=== PATIENT | male | born 1935 | race Native Hawaiian/Other Pacific Islander ===

== ENCOUNTER 2016-04-16 06:05 | Outpatient (CLI) | payer OTHER | END 2016-04-16 19:17 | disposition home or self-care (01) | LOC: LAB 06:05 | DX: Z79.899 Other long term (current) drug therapy (principal); Z51.81 Encounter for therapeutic drug level monitoring | CPT/HCPCS: 36415; 85610 ==

== ENCOUNTER 2016-05-16 06:06 | Outpatient (CLI) | payer OTHER | END 2016-05-16 20:01 | disposition home or self-care (01) | LOC: LAB 06:06 | DX: Z79.01 Long term (current) use of anticoagulants (principal); Z51.81 Encounter for therapeutic drug level monitoring | CPT/HCPCS: 36415; 85610 ==

== ENCOUNTER 2016-06-13 06:12 | Outpatient (CLI) | payer OTHER | END 2016-06-13 22:48 | disposition home or self-care (01) | LOC: LABW 06:12 | DX: Z79.01 Long term (current) use of anticoagulants (principal); Z51.81 Encounter for therapeutic drug level monitoring | CPT/HCPCS: 36415; 85610 ==

== ENCOUNTER → 2016-07-07 10:48 | Outpatient (CLI) | payer OTHER | END | disposition home or self-care (01) | LOC: AMB 10:48 | DX: S61.411A Laceration without foreign body of right hand, initial encounter (principal) ==

== ENCOUNTER 2016-07-16 06:27 | Outpatient (CLI) | payer OTHER | END 2016-07-16 07:27 | disposition home or self-care (01) | LOC: LABW 06:27 | DX: Z79.899 Other long term (current) drug therapy (principal); Z51.81 Encounter for therapeutic drug level monitoring | CPT/HCPCS: 36415; 85610 ==

== ENCOUNTER 2016-08-13 06:08 | Outpatient (CLI) | payer OTHER | END 2016-08-13 19:39 | disposition home or self-care (01) | LOC: LABW 06:08 | DX: Z79.899 Other long term (current) drug therapy (principal); Z79.01 Long term (current) use of anticoagulants | CPT/HCPCS: 36415; 85610 ==

== ENCOUNTER 2016-09-13 06:05 | Outpatient (CLI) | payer OTHER ==
[2016-09-13 06:41] LABS: PLATELET COUNT 220 K/uL (142-355)
[2016-09-13 07:28] LABS: POTASSIUM 3.8 mmol/L (3.6-5.2)
== END 2016-09-13 19:13 | disposition home or self-care (01) ==
LOC: LABW 06:05
PROVIDERS: Internal Medicine Cardiovascular Disease
DX: E78.4 Other hyperlipidemia (principal); Z79.899 Other long term (current) drug therapy; Z79.01 Long term (current) use of anticoagulants; Z51.81 Encounter for therapeutic drug level monitoring
CPT/HCPCS: 36415; 80048; 80061; 85027; 85610

== ENCOUNTER 2016-10-13 06:05 | Outpatient (CLI) | payer OTHER | END 2016-10-13 07:10 | disposition home or self-care (01) | LOC: LABW 06:05 | DX: Z79.899 Other long term (current) drug therapy (principal); Z79.01 Long term (current) use of anticoagulants; Z51.81 Encounter for therapeutic drug level monitoring; E78.4 Other hyperlipidemia | CPT/HCPCS: 36415; 85610 ==

== ENCOUNTER 2016-11-13 06:06 | Outpatient (CLI) | payer OTHER | END 2016-11-13 19:04 | disposition home or self-care (01) | LOC: LABW 06:06 | DX: Z79.899 Other long term (current) drug therapy (principal); Z51.81 Encounter for therapeutic drug level monitoring; Z79.01 Long term (current) use of anticoagulants | CPT/HCPCS: 36415; 85610 ==

== ENCOUNTER 2016-12-14 05:58 | Outpatient (CLI) | payer OTHER | END 2016-12-14 07:00 | disposition home or self-care (01) | LOC: LABW 05:58 | DX: Z79.899 Other long term (current) drug therapy (principal); Z51.81 Encounter for therapeutic drug level monitoring | CPT/HCPCS: 36415; 85610 ==

== ENCOUNTER 2017-01-14 05:58 | Outpatient (CLI) | payer OTHER | END 2017-01-14 07:00 | disposition home or self-care (01) | LOC: LABW 05:58 | DX: Z79.899 Other long term (current) drug therapy (principal); Z51.81 Encounter for therapeutic drug level monitoring; Z79.01 Long term (current) use of anticoagulants | CPT/HCPCS: 85610 ==

== ENCOUNTER 2017-02-13 06:05 | Outpatient (CLI) | payer OTHER | END 2017-02-13 19:09 | disposition home or self-care (01) | LOC: LABW 06:05 | DX: Z79.899 Other long term (current) drug therapy (principal); Z79.01 Long term (current) use of anticoagulants; Z51.81 Encounter for therapeutic drug level monitoring | CPT/HCPCS: 36415; 85610 ==

== ENCOUNTER 2017-03-15 06:05 | Outpatient (CLI) | payer OTHER ==
[2017-03-15 06:52] LABS: PLATELET COUNT 216 K/uL (142-355)
[2017-03-15 07:18] LABS: POTASSIUM 3.5 mmol/L (3.6-5.2); SODIUM 137 mmol/L (136-145)
== END 2017-03-15 07:05 | disposition home or self-care (01) ==
LOC: LABW 06:05
PROVIDERS: Internal Medicine Cardiovascular Disease
DX: I25.10 Atherosclerotic heart disease of native coronary artery without angina pectoris (principal); E78.4 Other hyperlipidemia; I10 Essential (primary) hypertension; I42.8 Other cardiomyopathies; Z79.01 Long term (current) use of anticoagulants; Z51.81 Encounter for therapeutic drug level monitoring
CPT/HCPCS: 36415; 80053; 85027; 85610

== ENCOUNTER 2017-04-15 06:21 | Outpatient (CLI) | payer OTHER | END 2017-04-15 20:16 | disposition home or self-care (01) | LOC: LABW 06:21 | DX: Z79.899 Other long term (current) drug therapy (principal); Z79.01 Long term (current) use of anticoagulants; Z51.81 Encounter for therapeutic drug level monitoring | CPT/HCPCS: 36415; 85610 ==

== ENCOUNTER 2017-05-16 06:07 | Outpatient (CLI) | payer OTHER | END 2017-05-16 06:14 | disposition home or self-care (01) | LOC: LABW 06:07 | DX: Z79.899 Other long term (current) drug therapy (principal); Z51.81 Encounter for therapeutic drug level monitoring; Z79.01 Long term (current) use of anticoagulants | CPT/HCPCS: 36415; 85610 ==

== ENCOUNTER 2017-06-13 06:01 | Outpatient (CLI) | payer OTHER | END 2017-06-13 22:19 | disposition home or self-care (01) | LOC: LABW 06:01 | DX: Z79.01 Long term (current) use of anticoagulants (principal) | CPT/HCPCS: 36415; 85610 ==

== ENCOUNTER 2017-07-15 06:06 | Outpatient (CLI) | payer OTHER | END 2017-07-15 23:29 | disposition home or self-care (01) | LOC: LABW 06:06 | DX: Z79.899 Other long term (current) drug therapy (principal); Z79.01 Long term (current) use of anticoagulants; Z51.81 Encounter for therapeutic drug level monitoring | CPT/HCPCS: 36415; 85610 ==

== ENCOUNTER 2017-08-17 06:07 | Outpatient (CLI) | payer OTHER | END 2017-08-17 19:16 | disposition home or self-care (01) | LOC: LABW 06:07 | DX: Z79.899 Other long term (current) drug therapy (principal); Z79.01 Long term (current) use of anticoagulants; Z51.81 Encounter for therapeutic drug level monitoring | CPT/HCPCS: 36415; 85610 ==

== ENCOUNTER 2017-09-13 07:07 | Outpatient (CLI) | payer OTHER | END 2017-09-13 19:19 | disposition home or self-care (01) | LOC: LABW 07:07 | DX: Z79.899 Other long term (current) drug therapy (principal); Z79.01 Long term (current) use of anticoagulants; Z51.81 Encounter for therapeutic drug level monitoring | CPT/HCPCS: 36415; 85610 ==

== ENCOUNTER 2017-10-14 06:06 | Outpatient (CLI) | payer OTHER | END 2017-10-14 19:40 | disposition home or self-care (01) | LOC: LABW 06:06 | DX: Z79.899 Other long term (current) drug therapy (principal); Z79.01 Long term (current) use of anticoagulants; Z51.81 Encounter for therapeutic drug level monitoring | CPT/HCPCS: 36415; 85610 ==

== ENCOUNTER 2017-11-13 06:12 | Outpatient (CLI) | payer OTHER | END 2017-11-13 22:09 | disposition home or self-care (01) | LOC: LABW 06:12 | DX: Z79.899 Other long term (current) drug therapy (principal); Z51.81 Encounter for therapeutic drug level monitoring | CPT/HCPCS: 36415; 85610 ==

== ENCOUNTER 2017-12-14 06:21 | Outpatient (CLI) | payer OTHER | END 2017-12-14 19:23 | disposition home or self-care (01) | LOC: LABW 06:21 | DX: Z79.01 Long term (current) use of anticoagulants (principal); Z79.899 Other long term (current) drug therapy | CPT/HCPCS: 36415; 85610 ==

== ENCOUNTER 2018-01-13 06:07 | Outpatient (CLI) | payer OTHER | END 2018-01-13 19:50 | disposition home or self-care (01) | LOC: LABW 06:07 | DX: Z79.899 Other long term (current) drug therapy (principal); Z79.01 Long term (current) use of anticoagulants | CPT/HCPCS: 36415; 85610 ==

== ENCOUNTER 2018-02-13 06:08 | Outpatient (CLI) | payer OTHER | END 2018-02-13 21:49 | disposition home or self-care (01) | LOC: LABW 06:08 | DX: Z79.01 Long term (current) use of anticoagulants (principal); Z79.899 Other long term (current) drug therapy | CPT/HCPCS: 36415; 85610 ==

== ENCOUNTER 2018-03-15 06:00 | Outpatient (CLI) | payer OTHER | END 2018-03-15 18:37 | disposition home or self-care (01) | LOC: LABW 06:00 | DX: Z79.01 Long term (current) use of anticoagulants (principal); Z79.899 Other long term (current) drug therapy | CPT/HCPCS: 36415; 85610 ==

== ENCOUNTER 2018-04-15 05:46 | Outpatient (CLI) | payer OTHER | END 2018-04-15 20:41 | disposition home or self-care (01) | LOC: LABW 05:46 | DX: Z79.01 Long term (current) use of anticoagulants (principal); Z79.899 Other long term (current) drug therapy | CPT/HCPCS: 36415; 85610 ==

== ENCOUNTER 2018-05-16 06:06 | Outpatient (CLI) | payer OTHER | END 2018-05-16 22:46 | disposition home or self-care (01) | LOC: LABW 06:06 | DX: Z79.01 Long term (current) use of anticoagulants (principal); Z79.899 Other long term (current) drug therapy | CPT/HCPCS: 36415; 85610 ==

== ENCOUNTER 2018-07-14 06:01 | Outpatient (CLI) | payer OTHER | END 2018-07-14 23:25 | disposition home or self-care (01) | LOC: LABW 06:01 | DX: Z79.899 Other long term (current) drug therapy (principal); Z79.01 Long term (current) use of anticoagulants | CPT/HCPCS: 36415; 85610 ==

== ENCOUNTER 2018-08-13 05:59 | Outpatient (CLI) | payer OTHER | END 2018-08-13 23:15 | disposition home or self-care (01) | LOC: LABW 05:59 | DX: I48.91 Unspecified atrial fibrillation (principal) | CPT/HCPCS: 36415; 85610 ==

== ENCOUNTER → 2018-09-11 07:39 | Outpatient (CLI) | payer OTHER | END | disposition home or self-care (01) | LOC: AMB 07:39 | DX: R55 Syncope and collapse (principal) ==

== ENCOUNTER 2018-09-13 06:09 | Outpatient (CLI) | payer OTHER | END 2018-09-13 19:22 | disposition home or self-care (01) | LOC: LABW 06:09 | DX: I48.91 Unspecified atrial fibrillation (principal) | CPT/HCPCS: 36415; 85610 ==

== ENCOUNTER 2018-10-13 06:10 | Outpatient (CLI) | payer OTHER | END 2018-10-13 23:31 | disposition home or self-care (01) | LOC: LABW 06:10 → LAB 06:10 → LABW 23:31 | DX: I48.91 Unspecified atrial fibrillation (principal) | CPT/HCPCS: 36415; 85610 ==

== ENCOUNTER 2018-11-13 06:14 | Outpatient (CLI) | payer OTHER | END 2018-11-13 20:13 | disposition home or self-care (01) | LOC: LABW 06:14 | DX: I48.91 Unspecified atrial fibrillation (principal) | CPT/HCPCS: 36415; 85610 ==

== ENCOUNTER 2018-12-14 14:58 | Outpatient (CLI) | payer OTHER | END 2018-12-14 23:59 | disposition home or self-care (01) | LOC: LABW 14:58 | DX: I48.91 Unspecified atrial fibrillation (principal) | CPT/HCPCS: 36415; 85610 ==

== ENCOUNTER 2019-01-13 05:47 | Outpatient (CLI) | payer OTHER | END 2019-01-13 23:32 | disposition home or self-care (01) | LOC: LABW 05:47 | DX: I48.91 Unspecified atrial fibrillation (principal) | CPT/HCPCS: 36415; 85610 ==

== ENCOUNTER 2019-02-13 06:16 | Outpatient (CLI) | payer OTHER | END 2019-02-13 22:10 | disposition home or self-care (01) | LOC: LABW 06:16 | DX: I48.91 Unspecified atrial fibrillation (principal) | CPT/HCPCS: 36415; 85610 ==

== ENCOUNTER 2019-03-16 06:11 | Outpatient (CLI) | payer OTHER | END 2019-03-16 20:53 | disposition home or self-care (01) | LOC: LABW 06:11 | DX: I48.91 Unspecified atrial fibrillation (principal) | CPT/HCPCS: 36415; 85610 ==

== ENCOUNTER 2019-04-15 05:48 | Outpatient (CLI) | payer OTHER | END 2019-04-15 22:01 | disposition home or self-care (01) | LOC: LABW 05:48 | DX: I48.91 Unspecified atrial fibrillation (principal) | CPT/HCPCS: 36415; 85610 ==

== ENCOUNTER 2019-05-16 05:39 | Outpatient (CLI) | payer OTHER | END 2019-05-16 20:37 | disposition home or self-care (01) | LOC: LABW 05:39 | DX: I48.91 Unspecified atrial fibrillation (principal) | CPT/HCPCS: 36415; 85610 ==

== ENCOUNTER 2019-06-14 05:37 | Outpatient (CLI) | payer OTHER | END 2019-06-14 07:00 | disposition home or self-care (01) | LOC: LABW 05:37 | DX: I48.91 Unspecified atrial fibrillation (principal) | CPT/HCPCS: 36415; 85610 ==

== ENCOUNTER 2019-08-14 06:21 | Outpatient (CLI) | payer OTHER | END 2019-08-14 21:25 | disposition home or self-care (01) | LOC: LABW 06:21 | DX: I48.91 Unspecified atrial fibrillation (principal) | CPT/HCPCS: 36415; 85610 ==

== ENCOUNTER 2019-09-14 05:55 | Outpatient (CLI) | payer OTHER | END 2019-09-14 19:48 | disposition home or self-care (01) | LOC: LABW 05:55 | DX: I48.91 Unspecified atrial fibrillation (principal) | CPT/HCPCS: 36415; 85610 ==

== ENCOUNTER 2019-10-14 06:02 | Outpatient (CLI) | payer OTHER | END 2019-10-14 22:01 | disposition home or self-care (01) | LOC: LAB 06:02 | DX: I48.91 Unspecified atrial fibrillation (principal) | CPT/HCPCS: 36415; 85610 ==

== ENCOUNTER 2019-11-14 06:01 | Outpatient (CLI) | payer OTHER | END 2019-11-14 19:11 | disposition home or self-care (01) | LOC: LAB 06:01 | DX: I48.91 Unspecified atrial fibrillation (principal) | CPT/HCPCS: 36415; 85610 ==

== ENCOUNTER 2019-12-15 05:51 | Outpatient (CLI) | payer OTHER | END 2019-12-15 23:15 | disposition home or self-care (01) | LOC: LAB 05:51 | DX: I48.91 Unspecified atrial fibrillation (principal) | CPT/HCPCS: 36415; 85610 ==

== ENCOUNTER 2020-01-14 08:33 | Outpatient (CLI) | payer OTHER | END 2020-01-14 19:44 | disposition home or self-care (01) | LOC: LABW 08:33 | DX: I48.91 Unspecified atrial fibrillation (principal) | CPT/HCPCS: 36415; 85610 ==

== ENCOUNTER 2020-02-15 05:41 | Outpatient (CLI) | payer OTHER | END 2020-02-15 23:20 | disposition home or self-care (01) | LOC: LABW 05:41 | DX: I48.91 Unspecified atrial fibrillation (principal) | CPT/HCPCS: 36415; 85610 ==

== ENCOUNTER 2020-03-01 12:45 | Outpatient (CLI) | payer OTHER ==
[2020-03-01 13:08] LABS: PLATELET COUNT 189 K/uL (142-355)
[2020-03-01 13:27] LABS: POTASSIUM 4.7 mmol/L (3.6-5.2)
== END 2020-03-01 22:40 | disposition home or self-care (01) ==
LOC: LABW 12:45
PROVIDERS: ATTEND Internal Medicine Cardiovascular Disease
DX: Z79.899 Other long term (current) drug therapy (principal)
CPT/HCPCS: 36415; 80053; 80061; 85027

== ENCOUNTER 2020-03-15 06:14 | Outpatient (CLI) | payer OTHER | END 2020-03-15 22:19 | disposition home or self-care (01) | LOC: LABW 06:14 | PROVIDERS: ATTEND Internal Medicine Cardiovascular Disease | DX: I48.91 Unspecified atrial fibrillation (principal) | CPT/HCPCS: 36415; 85610 ==

== ENCOUNTER 2020-04-15 06:49 | Outpatient (CLI) | payer OTHER | END 2020-04-15 18:51 | disposition home or self-care (01) | LOC: LABW 06:49 | PROVIDERS: ATTEND Internal Medicine Cardiovascular Disease | DX: I48.91 Unspecified atrial fibrillation (principal) | CPT/HCPCS: 36415; 85610 ==

== ENCOUNTER 2020-05-16 06:28 | Outpatient (CLI) | payer OTHER | END 2020-05-16 19:13 | disposition home or self-care (01) | LOC: LAB 06:28 | PROVIDERS: ATTEND Internal Medicine Cardiovascular Disease | DX: I48.91 Unspecified atrial fibrillation (principal) | CPT/HCPCS: 36415; 85610 ==

== ENCOUNTER 2020-06-13 06:00 | Outpatient (CLI) | payer OTHER | END 2020-06-13 22:40 | disposition home or self-care (01) | LOC: LAB 06:00 → LABW 06:00 → LAB 22:40 | PROVIDERS: ATTEND Internal Medicine Cardiovascular Disease | DX: I48.91 Unspecified atrial fibrillation (principal) | CPT/HCPCS: 36415; 85610 ==

== ENCOUNTER 2020-07-14 06:30 | Outpatient (CLI) | payer OTHER | END 2020-07-14 20:16 | disposition home or self-care (01) | LOC: LABW 06:30 | PROVIDERS: ATTEND Internal Medicine Cardiovascular Disease | DX: I48.91 Unspecified atrial fibrillation (principal) | CPT/HCPCS: 36415; 85610 ==

== ENCOUNTER 2020-08-13 06:00 | Outpatient (CLI) | payer OTHER | END 2020-08-13 19:28 | disposition home or self-care (01) | LOC: LABW 06:00 | PROVIDERS: ATTEND Internal Medicine Cardiovascular Disease | DX: I48.91 Unspecified atrial fibrillation (principal) | CPT/HCPCS: 36415; 85610 ==

== ENCOUNTER 2020-09-13 05:42 | Outpatient (CLI) | payer OTHER | END 2020-09-13 19:05 | disposition home or self-care (01) | LOC: LABW 05:42 | PROVIDERS: ATTEND Internal Medicine Cardiovascular Disease | DX: I48.91 Unspecified atrial fibrillation (principal) | CPT/HCPCS: 36415; 85610 ==

== ENCOUNTER 2020-10-13 05:38 | Outpatient (CLI) | payer OTHER | END 2020-10-13 23:59 | disposition home or self-care (01) | LOC: LABW 05:38 | PROVIDERS: ATTEND Internal Medicine Cardiovascular Disease | DX: Z79.01 Long term (current) use of anticoagulants (principal) | CPT/HCPCS: 36415; 85610 ==

== ENCOUNTER 2020-11-14 05:23 | Outpatient (CLI) | payer OTHER | END 2020-11-14 22:33 | disposition home or self-care (01) | LOC: LABW 05:23 | PROVIDERS: ATTEND Internal Medicine Cardiovascular Disease | DX: I48.91 Unspecified atrial fibrillation (principal) | CPT/HCPCS: 36415; 85610 ==

== ENCOUNTER 2020-12-14 05:33 | Outpatient (CLI) | payer OTHER | END 2020-12-14 23:00 | disposition home or self-care (01) | LOC: LABW 05:33 | PROVIDERS: ATTEND Internal Medicine Cardiovascular Disease | DX: I48.91 Unspecified atrial fibrillation (principal) | CPT/HCPCS: 36415; 85610 ==

== ENCOUNTER 2021-01-13 08:29 | Outpatient (CLI) | payer OTHER | END 2021-01-13 19:00 | disposition home or self-care (01) | LOC: LABW 08:29 | PROVIDERS: ATTEND Internal Medicine Cardiovascular Disease | DX: Z79.01 Long term (current) use of anticoagulants (principal) | CPT/HCPCS: 36415; 85610 ==

== ENCOUNTER 2021-02-13 08:49 | Outpatient (CLI) | payer OTHER | END 2021-02-13 19:21 | disposition home or self-care (01) | LOC: LABW 08:49 | PROVIDERS: ATTEND Internal Medicine Cardiovascular Disease | DX: Z79.01 Long term (current) use of anticoagulants (principal) | CPT/HCPCS: 36415; 85610 ==

== ENCOUNTER 2021-03-15 05:46 | Outpatient (CLI) | payer OTHER | END 2021-03-15 20:07 | disposition home or self-care (01) | LOC: LABW 05:46 | PROVIDERS: ATTEND Internal Medicine Cardiovascular Disease | DX: Z79.01 Long term (current) use of anticoagulants (principal) | CPT/HCPCS: 36415; 85610 ==

== ENCOUNTER 2021-04-15 05:46 | Outpatient (CLI) | payer OTHER | END 2021-04-15 18:41 | disposition home or self-care (01) | LOC: LABW 05:46 | PROVIDERS: ATTEND Internal Medicine Cardiovascular Disease | DX: Z79.01 Long term (current) use of anticoagulants (principal) | CPT/HCPCS: 36415; 85610 ==

== ENCOUNTER 2021-05-16 04:55 | Outpatient (CLI) | payer OTHER | END 2021-05-16 19:19 | disposition home or self-care (01) | LOC: LABW 04:55 | PROVIDERS: ATTEND Internal Medicine Cardiovascular Disease | DX: Z79.01 Long term (current) use of anticoagulants (principal) | CPT/HCPCS: 36415; 85610 ==

== ENCOUNTER 2021-06-13 05:31 | Outpatient (CLI) | payer OTHER | END 2021-06-13 19:00 | disposition home or self-care (01) | LOC: LABW 05:31 | PROVIDERS: ATTEND Internal Medicine Cardiovascular Disease | DX: Z79.01 Long term (current) use of anticoagulants (principal) | CPT/HCPCS: 36415; 85610 ==

== ENCOUNTER 2021-07-14 05:17 | Outpatient (CLI) | payer OTHER | END 2021-07-14 20:41 | disposition home or self-care (01) | LOC: LABW 05:17 | PROVIDERS: ATTEND Internal Medicine Cardiovascular Disease | DX: Z79.01 Long term (current) use of anticoagulants (principal) | CPT/HCPCS: 36415; 85610 ==

== ENCOUNTER 2021-08-14 05:13 | Outpatient (CLI) | payer OTHER | END 2021-08-14 18:51 | disposition home or self-care (01) | LOC: LABW 05:13 | PROVIDERS: ATTEND Internal Medicine Cardiovascular Disease | DX: Z79.01 Long term (current) use of anticoagulants (principal) | CPT/HCPCS: 36415; 85610 ==

== ENCOUNTER 2021-09-13 05:00 | Outpatient (CLI) | payer OTHER | END 2021-09-13 19:06 | disposition home or self-care (01) | LOC: LABW 05:00 | PROVIDERS: ATTEND Internal Medicine Cardiovascular Disease | DX: Z79.01 Long term (current) use of anticoagulants (principal) | CPT/HCPCS: 36415; 85610 ==

== ENCOUNTER 2021-10-13 06:31 | Outpatient (CLI) | payer OTHER | END 2021-10-13 21:13 | disposition home or self-care (01) | LOC: LABW 06:31 | PROVIDERS: ATTEND Internal Medicine Cardiovascular Disease | DX: Z79.01 Long term (current) use of anticoagulants (principal) | CPT/HCPCS: 36415; 85610 ==

== ENCOUNTER 2021-11-13 06:22 | Outpatient (CLI) | payer OTHER | END 2021-11-13 18:53 | disposition home or self-care (01) | LOC: LABW 06:22 | PROVIDERS: ATTEND Internal Medicine Cardiovascular Disease | DX: Z79.01 Long term (current) use of anticoagulants (principal) | CPT/HCPCS: 36415; 85610 ==

== ENCOUNTER 2021-12-14 06:51 | Outpatient (CLI) | payer OTHER | END 2021-12-14 19:18 | disposition home or self-care (01) | LOC: LABW 06:51 | PROVIDERS: ATTEND Internal Medicine Cardiovascular Disease | DX: Z79.01 Long term (current) use of anticoagulants (principal) | CPT/HCPCS: 36415; 85610 ==

== ENCOUNTER → 2022-01-13 | Outpatient (CLI) | payer OTHER | LOC: LABW 06:31 | PROVIDERS: ATTEND Internal Medicine Cardiovascular Disease | DX: Z79.01 Long term (current) use of anticoagulants (principal) | CPT/HCPCS: 36415; 85610 ==

== ENCOUNTER → 2022-02-13 | Outpatient (CLI) | payer OTHER | LOC: LABW 06:20 | PROVIDERS: ATTEND Internal Medicine Cardiovascular Disease | DX: Z79.01 Long term (current) use of anticoagulants (principal) | CPT/HCPCS: 36415; 85610 ==

== ENCOUNTER 2022-03-15 06:53 | Outpatient (CLI) | payer OTHER | END 2022-03-15 18:57 | disposition home or self-care (01) | LOC: LABW 06:53 | PROVIDERS: ATTEND Internal Medicine Cardiovascular Disease | DX: Z79.01 Long term (current) use of anticoagulants (principal) | CPT/HCPCS: 36415; 85610 ==

== ENCOUNTER 2022-04-16 06:12 | Outpatient (CLI) | payer OTHER | END 2022-04-16 19:03 | disposition home or self-care (01) | LOC: LABW 06:12 | PROVIDERS: ATTEND Internal Medicine Cardiovascular Disease | DX: Z79.01 Long term (current) use of anticoagulants (principal) | CPT/HCPCS: 36415; 85610 ==

== ENCOUNTER 2022-05-16 06:09 | Outpatient (CLI) | payer OTHER | END 2022-05-16 19:04 | disposition home or self-care (01) | LOC: LABW 06:09 | PROVIDERS: ATTEND Internal Medicine Cardiovascular Disease | DX: Z79.01 Long term (current) use of anticoagulants (principal) | CPT/HCPCS: 36415; 85610 ==

== ENCOUNTER 2022-06-13 05:58 | Outpatient (CLI) | payer OTHER | END 2022-06-13 19:10 | disposition home or self-care (01) | LOC: LABW 05:58 | PROVIDERS: ATTEND Internal Medicine Cardiovascular Disease | DX: Z79.01 Long term (current) use of anticoagulants (principal) | CPT/HCPCS: 36415; 85610 ==

== ENCOUNTER 2022-07-16 06:11 | Outpatient (CLI) | payer OTHER | END 2022-07-16 18:50 | disposition home or self-care (01) | LOC: LABW 06:11 | PROVIDERS: ATTEND Internal Medicine Cardiovascular Disease | DX: Z79.01 Long term (current) use of anticoagulants (principal) | CPT/HCPCS: 36415; 85610 ==

== ENCOUNTER 2022-08-01 15:49 | Outpatient (CLI) | payer OTHER ==
[2022-08-01 16:01] LABS: PLATELET COUNT 299 K/uL (142-355)
[2022-08-01 16:18] LABS: POTASSIUM 4.9 mmol/L (3.6-5.2)
== END 2022-08-01 19:38 | disposition home or self-care (01) ==
LOC: LABW 15:49
PROVIDERS: ATTEND Internal Medicine Cardiovascular Disease
DX: Z79.01 Long term (current) use of anticoagulants (principal); Z79.899 Other long term (current) drug therapy
CPT/HCPCS: 36415; 80053; 80061; 85027

== ENCOUNTER 2022-08-13 06:55 | Outpatient (CLI) | payer OTHER | END 2022-08-13 19:32 | LOC: LABW 06:55 | PROVIDERS: ATTEND Internal Medicine Cardiovascular Disease | DX: Z79.01 Long term (current) use of anticoagulants (principal) | CPT/HCPCS: 36415; 85610 ==

== ENCOUNTER 2022-09-13 07:18 | Outpatient (CLI) | payer OTHER | END 2022-09-13 19:08 | disposition home or self-care (01) | LOC: LABW 07:18 | PROVIDERS: ATTEND Internal Medicine Cardiovascular Disease | DX: Z79.01 Long term (current) use of anticoagulants (principal) | CPT/HCPCS: 36415; 85610 ==

== ENCOUNTER 2022-10-15 08:05 | Outpatient (CLI) | payer OTHER | END 2022-10-15 19:24 | disposition home or self-care (01) | LOC: LABW 08:05 | PROVIDERS: ATTEND Internal Medicine Cardiovascular Disease | DX: Z79.01 Long term (current) use of anticoagulants (principal) | CPT/HCPCS: 36415; 85610 ==

== ENCOUNTER 2022-11-13 07:40 | Outpatient (CLI) | payer OTHER | END 2022-11-13 20:05 | disposition home or self-care (01) | LOC: LABW 07:40 | PROVIDERS: ATTEND Internal Medicine Cardiovascular Disease | DX: Z79.01 Long term (current) use of anticoagulants (principal) | CPT/HCPCS: 36415; 85610 ==

== ENCOUNTER 2022-12-14 07:30 | Outpatient (CLI) | payer OTHER | END 2022-12-14 20:42 | disposition home or self-care (01) | LOC: LABW 07:30 | PROVIDERS: ATTEND Internal Medicine Cardiovascular Disease | DX: Z79.01 Long term (current) use of anticoagulants (principal) | CPT/HCPCS: 36415; 85610 ==